=== PATIENT | male | born 1995 | race Caucasian/White ===

== ENCOUNTER 2023-01-23 07:28 | Emergency (ER) | payer MEDICAID ==
[~2023-01-23] VITALS: Ht 180.3 cm; Wt 100.0 kg
[~2023-01-23 07:28] MED LIST: ONDA4TAB12 PO
[2023-01-23 07:31] VITALS: BP 113/84
[2023-01-23] MEDS ORDERED: bacitracin ointment unit dose packet TP ONE (08:25)
== END 2023-01-23 09:34 | disposition home or self-care (01) ==
LOC: ER 07:28
DX: S90.822A Blister (nonthermal), left foot, initial encounter (principal); S90.821A Blister (nonthermal), right foot, initial encounter; Z87.442 Personal history of urinary calculi; Z79.899 Other long term (current) drug therapy; X58.XXXA Exposure to other specified factors, initial encounter; Y93.02 Activity, running; Y92.838 Other recreation area as the place of occurrence of the external cause; Y99.8 Other external cause status
CPT/HCPCS: 99282; A6258; A6446; A6449

== ENCOUNTER 2023-10-19 13:25 | Emergency (ER) | payer MEDICAID ==
[~2023-10-19] VITALS: Ht 180.3 cm; Wt 100.0 kg
[2023-10-19 13:27] VITALS: BP 115/80; PULSE 126; RESP 20; TEMP 98.4; O2SAT 98
[2023-10-19 14:30] LABS: STREP A SCREEN POSITIVE (Neg)
[2023-10-19] MEDS: ibuprofen 100 MG/5 ML oral susp PO ONE (14:33)
[2023-10-19] MEDS: DEXAMETHASONE 6 MG TABLET PO SCH (14:33)
[2023-10-19] MEDS ORDERED: AMOX500C4 PO (14:37)
== END 2023-10-19 14:53 | disposition home or self-care (01) ==
LOC: ER 13:25
DX: J02.0 Streptococcal pharyngitis (principal); Z79.2 Long term (current) use of antibiotics; Z79.899 Other long term (current) drug therapy
CPT/HCPCS: 87880; 99283; J8540

== ENCOUNTER 2023-12-29 18:18 | Emergency (ER) | payer MEDICAID ==
[~2023-12-29] VITALS: Ht 180.3 cm; Wt 90.9 kg
[2023-12-29 19:34] LABS: BASOPHILS # (AUTO) 0.1 X10'3 (0-0.2); BASOPHILS % (AUTO) 0.6 % (0-1); EOSINOPHILS # (AUTO) 0.2 X10'3 (0-0.9); EOSINOPHILS % (AUTO) 1.7 % (0-6); HEMATOCRIT 47.4 % (42.0-52.0); LYMPHOCYTES # (AUTO) 1.8 X10'3 (1.1-4.8); MEAN CORPUSCULAR HEMOGLOBIN 34.5 PG (27.0-31.0); MEAN CORPUSCULAR HGB CONC 33.7 g/dL (33.0-36.5); MEAN CORPUSCULAR VOLUME 102.3 FL (78-98); MEAN PLATELET VOLUME 7.5 FL (7.4-10.4); MONOCYTES % (AUTO) 9.4 % (2-12); NEUTROPHILS # (AUTO) 7.6 X10'3 (1.8-7.7); NEUTROPHILS % (AUTO) 71.3 % (42-75); PLATELET COUNT 229 X10'3 (140-440); RED BLOOD COUNT 4.63 X10'6 (4.70-6.10); WHITE BLOOD COUNT 10.7 X10'3 (4.5-11.0)
[2023-12-29] MEDS ORDERED: PANT-47 PO (19:52)
[2023-12-29 19:59] VITALS: BP 125/74; PULSE 88; RESP 18; TEMP 98.3; O2SAT 95
== END 2023-12-29 20:01 | disposition home or self-care (01) ==
LOC: ER 18:18
DX: K29.70 Gastritis, unspecified, without bleeding (principal); K21.9 Gastro-esophageal reflux disease without esophagitis; Z87.442 Personal history of urinary calculi
CPT/HCPCS: 36415; 85025; 99283